=== PATIENT | female | born 1975 | race Caucasian/White ===

== ENCOUNTER 2019-05-29 06:44 | Day surgery (SDC) | payer BC ==
[2019-05-27 10:19] LABS: BASOPHILS % (AUTO) 0.4 % (0-1); EOSINOPHILS # (AUTO) 0.2 X10'3 (0-0.9); EOSINOPHILS % (AUTO) 1.7 % (0-6); LYMPHOCYTES # (AUTO) 3.1 X10'3 (1.1-4.8); LYMPHOCYTES % (AUTO) 32.4 % (21-51); MEAN CORPUSCULAR HEMOGLOBIN 27.6 PG (27.0-31.0); MEAN CORPUSCULAR HGB CONC 33.2 g/dL (33.0-36.5); MEAN CORPUSCULAR VOLUME 83.2 FL (78-98); MEAN PLATELET VOLUME 8.7 FL (7.4-10.4); MONOCYTES # (AUTO) 0.6 X10'3 (0-0.9); MONOCYTES % (AUTO) 5.9 % (2-12); NEUTROPHILS # (AUTO) 5.6 X10'3 (1.8-7.7); NEUTROPHILS % (AUTO) 59.6 % (42-75); PRE OP HEMATOCRIT 40.4 % (35.0-45.0); PRE OP HEMOGLOBIN 13.4 g/dL (12.0-16.0); PRE OP PLATELET COUNT 355 X10'3 (140-440); RED BLOOD COUNT 4.85 X10'6 (4.20-5.60); RED CELL DISTRIBUTION WIDTH 13.7 % (11.5-14.5)
[2019-05-27 10:22] LABS: CLARITY,URINE CLEAR (Clear); COLOR,URINE YELLOW (Yellow); GLUCOSE, URINE NEGATIVE (Neg); KETONES,URINE NEGATIVE (Neg); LEUKOCYTE ESTERASE ,URINE NEGATIVE (Neg); NITRITES, URINE NEGATIVE (Neg); OCCULT BLOOD,URINE NEGATIVE (Neg); PROTEIN,URINE NEGATIVE (Neg); UROBILINOGEN,URINE 0.2 E.U/dL (0.2-1.0)
[2019-05-27 10:26] LABS: UA COLLECTION TYPE CLN CATCH MIDSTREAM
[2019-05-27 10:32] LABS: PRE OP PROTIME 10.4 SECONDS (9.0-12.0)
[2019-05-27 10:34] LABS: ALBUMIN 3.6 G/DL (3.4-5.0); ALBUMIN/GLOBULIN RATIO 0.9 (1.1-1.5); ALKALINE PHOSPHATASE 49 IU/L (46-116); BLOOD UREA NITROGEN 18 MG/DL (7-18); BUN/CREATININE RATIO 20.9 (6.6-38.0); CALCIUM 8.9 MG/DL (8.5-10.1); CHLORIDE 106 MMOL/L (99-107); CREATININE 0.86 MG/DL (0.40-0.90); PRE OP ALT 26 U/L (30-65); PRE OP ANION GAP 8 (8-16); PRE OP AST 17 U/L (10-37); PRE OP BILIRUB, TOTAL 0.2 MG/DL (0.0-1.0); PRE OP GLUCOSE 107 MG/DL (70-104); PRE OP POTASSIUM 4.7 MMOL/L (3.4-5.1); PRE OP SODIUM 141 MMOL/L (135-145); TOTAL CARBON DIOXIDE 27.1 MMOL/L (24-32); TOTAL PROTEIN 7.4 G/DL (6.4-8.2); eGFR 71 ML/MIN
[2019-05-27 10:48] LABS: HCG SERUM QL NEGATIVE
[~2019-05-29] VITALS: Ht 175.3 cm; Wt 124.7 kg
[2019-05-29] VITALS (10 sets, daily range): BP systolic 135–148; BP diastolic 64–80
[~2019-05-29 06:44] MED LIST: ASPI-101 PO; MULT-1085 PO; OMEP20TA23 PO; TRAZ150T78 PO; ceFOXitin 2 GM ADDvantage bag 100 ML IV ONE; ceFOXitin 2 GM ADDvantage bag 50 ML IV ONE; famotidine 20mg tablet PO ONE; ringers solution, lacted 1,000 ML IV SCH
[2019-05-29] MEDS ORDERED: LIDOcaine 1% 30ml preserv. free vial ONE (08:01)
[2019-05-29] MEDS ORDERED: sevoflurane 250ml liquid IH ONE (08:58)
[2019-05-29] MEDS ORDERED: acetaminophen 1000 MG/100ml vial IV ONE (08:58)
[2019-05-29] MEDS ORDERED: fentaNYL /PF 50mcg/ml 5ml ampule ONE (09:04)
[2019-05-29] MEDS ORDERED: midazolam 2 mg/2 ml injection ONE (09:04)
[2019-05-29] MEDS ORDERED: rocuronium 10mg/ml inj IV ONE (09:30)
[2019-05-29] MEDS ORDERED: dexamethasone sod phosphate 4mg/ml inj. ONE (09:30)
[2019-05-29] MEDS ORDERED: propofol inj 20 ML IV ONE (09:30)
[2019-05-29] MEDS ORDERED: BUPIVAcaine/PF 2.5 mg/ml (0.25%) 30ml vial ONE (09:46)
[2019-05-29] MEDS ORDERED: ondansetron/PF 4mg/2ml inj ONE (10:05)
[2019-05-29] MEDS ORDERED: ringers solution, lacted 1,000 ML IV SCH (10:08)
[2019-05-29] MEDS ORDERED: ondansetron/PF 4mg/2ml inj IV PRN (10:10)
[2019-05-29] MEDS ORDERED: morphine 4 MG/ML inj SYRINge IV PRN (10:10)
[2019-05-29] MEDS ORDERED: proCHLORperazine 10 MG/2 ml inj IV PRN (10:10)
[2019-05-29] MEDS ORDERED: meperidine/PF 25mg/ml syringe IV PRN ×2 (10:10)
[2019-05-29] MEDS ORDERED: morphine 2 MG/ML inj. syringe IV PRN (10:10)
[2019-05-29] MEDS ORDERED: neostigmine methylsulfate 1 MG/ML 10ml vial ONE (11:22)
[2019-05-29] MEDS ORDERED: glycopyrrolate 0.2mg/ml inj ONE (11:22)
--- NOTE | 2019-05-29 11:32 | NUR ---
Received from OR via [facility] , accompanied by Anesthesiologist SANDEEP and report given by Anesthesiolgist. PATIENT WITH 20G PIVI N LEFT UIE RUNNING LR AT 100, MEDICATED FOR PAIN UPON ARRIVAL. PATIENT WITH 4 ABDOMINAL LAP SITES PRESENT ALL CDI. 10L MASK ON WITH 100% SATURATIONS. Addendum: 05/29/19 at 1154 by Gage Dyer RN, RN Amended: Links added.
[2019-05-29] MEDS: meperidine/PF 25mg/ml syringe IV PRN ×2 (11:46→12:06)
[2019-05-29] MEDS ORDERED: ketorolac tromethamine 15mg/ml inj. IV ONE (12:10)
--- NOTE | 2019-05-29 13:02 | NUR ---
ALL DC CRITERIA HAS BEEN MET. IV TAKEN OUT WITHOUT COMPLICATIONS. ALL INSTRUCTIONS COVERED AND ALL QUESTIONS ANSWERED. DRESSINGS CDI. OUT VIA WHEELCHAIR TO PERSONAL VEHICLE WHERE PATIENT WAS SECURED IN AND DRIVEN HOME BY FAMILY. SPOUSE PRESENT TO DRESS PATIENT AND HEAR DC INSTRUCTIONS. VOIDED AND AMBULATED WITH SUPERVISION. Addendum: 05/29/19 at 1313 by Gage Dyer RN, RN Amended: Links added.
== END 2019-05-29 13:02 | disposition home or self-care (01) ==
LOC: PAS 06:44
PROVIDERS: ATTEND Obstetrics & Gynecology
DX: N94.6 Dysmenorrhea, unspecified (principal); N92.1 Excessive and frequent menstruation with irregular cycle; N72 Inflammatory disease of cervix uteri; N84.0 Polyp of corpus uteri; N80.0 Endometriosis of uterus; N83.11 Corpus luteum cyst of right ovary; N73.6 Female pelvic peritoneal adhesions (postinfective); I10 Essential (primary) hypertension; F17.210 Nicotine dependence, cigarettes, uncomplicated; E66.9 Obesity, unspecified; Z68.41 Body mass index [BMI] 40.0-44.9, adult; Z98.890 Other specified postprocedural states; Z79.899 Other long term (current) drug therapy
CPT/HCPCS: 36415; 58571; 58662; 80053; 81003; 82948; 84703; 85025; 85610; 85730; 86885; 86900; 86901; C1758; J0694; J1100; J1885; J2001; J2175; J2250; J2270; J2405; J2704; J2710; J3010; J3490; J7120; S2900; A4355; A4618; A7000; J0131